=== PATIENT | male | born 1990 | race Caucasian/White ===

== ENCOUNTER 2018-08-11 22:16 | Emergency (ER) | payer BC, OTHER ==
[2018-08-12] MEDS: LORAZEPAM 1 MG TAB PO (01:43)
[2018-08-12] MEDS: KETOROLAC 60 MG INJ IM (01:44)
[2018-08-12] MEDS: DEXAMETHASONE 10 MG/ML 1 ML INJ IM (01:44)
== END 2018-08-12 02:08 | disposition home or self-care (01) ==
LOC: FTE 22:16
DX: B02.9 Zoster without complications (principal); F17.210 Nicotine dependence, cigarettes, uncomplicated
CPT/HCPCS: 96372; 99284-25